=== PATIENT | male | born 1970 | race Caucasian/White ===

== ENCOUNTER 2024-12-23 01:01 | Observation (INO) | payer OTHER ==
[2024-12-23 02:18] LABS: #Basophils 0.07 10x3/uL (0.0-0.2); #Eosinophils 0.11 10x3/uL (0.0-0.7); #Monocytes 0.45 10x3/uL (0.11-0.59); #Neutrophils 4.04 10x3/uL (1.40-6.50); %Basophils 1.0 % (0.0-1.0); %Eosinophils 1.6 % (0.0-10.0); %Lymphocytes 29.8 % (21.0-51.0); %Monocytes 6.7 % (0.0-10.0); %Neutrophils 60.8 % (42.0-75.0); Hematocrit 49.0 % (42.0-52.0); Hemoglobin 15.9 g/dL (14.0-18.0); Mean Corpuscular Hemoglobin 27.7 pg (27.0-31.0); Mean Corpuscular Volume 85.4 fL (78.0-98.0); Platelet Count 300 10x3/uL (130-400); Red Blood Cell (RBC) Count 5.74 mill/uL (4.70-6.10); White Blood Cell (WBC) Count 6.67 10x3/uL (4.8-10.8)
[2024-12-23 02:35] LABS: ALT (SGPT) 21 U/L (Less than 45); AST (SGOT) 29 U/L (11-34); Albumin 4.2 g/dL (3.1-4.5); Alkaline Phosphatase 68 U/L (40-110); Anion Gap 13 mmol/L (10-20); BUN (Urea Nitrogen) 12 mg/dL (8.4-25.7); Bilirubin, Total 0.3 mg/dL (0.3-1.2); Calc. Creatinine Clearance 0 mL/min (70-130); Calcium 9.3 mg/dL (7.8-10.44); Carbon Dioxide 29 mmol/L (22-29); Chloride 101 mmol/L (98-107); Globulin 3.2 g/dL (2.4-3.5); Glucose 126 mg/dL (70-105); Lipase 52 U/L (8-78); Magnesium 2.1 mg/dL (1.6-2.6); Potassium 4.0 mmol/L (3.5-5.1); Sodium 139 mmol/L (136-145)
[2024-12-23] MEDS ORDERED: Ondansetron PF 4 MG/2 ML Vial ONE (04:02)
[2024-12-23] MEDS ORDERED: Dextrose 50% Abboject 50 ML SYRINGE SLOW IVP PRN (05:59)
[2024-12-23] MEDS ORDERED: Glucagon 1 MG/ML KIT IM PRN (05:59)
[2024-12-23] MEDS ORDERED: Ondansetron PF 4 MG/2 ML Vial IVP PRN (05:59)
[2024-12-23] MEDS ORDERED: hydrALAZINE 20 MG/ML VIAL SLOW IVP PRN (05:59)
[2024-12-23] MEDS ORDERED: HYDROmorphone 0.5 MG/0.5 ML SYRINGE SLOW IVP PRN (06:03)
[2024-12-23 06:54] VITALS: BMI 21.1
[2024-12-23] MEDS: Acetaminophen 325 MG TAB PO SCH (07:10)
[2024-12-23] MEDS: Ketorolac Tromethamine 30 MG (1 mL) VIAL IVP SCH (07:11)
[2024-12-23 08:41] LABS: Bacteria/HPF None Seen HPF (None Seen); CAUTI Indications for Culture Pelvic or flank pain; Glucose, Urine (Dipstick) Normal (Negative); Leukocyte Negative Leu/uL (Negative); Protein, Urine (Dipstick) Negative (Neg-Trace); RBC/HPF 0-3 HPF (0-3); WBC/HPF 0-3 HPF (0-3)
[2024-12-23 08:48] VITALS: BP 139/74; TEMP 97.9
[2024-12-23 08:48] LABS: Specific Gravity, Urine Greater than 1.050 (1.002-1.036); Urine Culture Reflex No No
[2024-12-23] MEDS: Famotidine 20 MG TAB PO SCH (08:49)
[2024-12-23] MEDS ORDERED: Famotidine/PF 20 mg/2ml Vial ONE (08:58)
[2024-12-23] MEDS ORDERED: Famotidine/PF 20 mg/2ml Vial SLOW IVP SCH (09:00)
[2024-12-23] MEDS ORDERED: fentaNYL PF 100 MCG/2 ML SYRINGE ONE ×2 (09:42→10:35)
[2024-12-23] MEDS ORDERED: PROPOFOL 20 ML ONE ×2 (09:42→10:38)
[2024-12-23] MEDS ORDERED: Bupivacaine 0.25% HCL 30 ML VIAL ONE (09:42)
[2024-12-23] MEDS ORDERED: Iopamidol-370 76% 500 ML MDV (1 ML CHARGE) ONE (09:43)
[2024-12-23] MEDS ORDERED: Rocuronium Bromide 10 MG/ML (10ML VIAL) ONE (10:18)
[2024-12-23] MEDS ORDERED: SUGAMMADEX SODIUM 200 MG/2 ML VIAL ONE (10:55)
== END 2024-12-23 14:05 | disposition home or self-care (01) ==
LOC: ERS 01:01 → ERHOLD 06:03
PROVIDERS: ADMIT Surgery; ATTEND Surgery
PROC: 0FT44ZZ Resection of Gallbladder, Percutaneous Endoscopic Approach (ICD-10-PCS; principal; 2024-12-23)
DX: K80.12 Calculus of gallbladder with acute and chronic cholecystitis without obstruction (principal); E03.9 Hypothyroidism, unspecified; F17.290 Nicotine dependence, other tobacco product, uncomplicated; Z91.040 Latex allergy status; Z91.013 Allergy to seafood; Z79.890 Hormone replacement therapy
CPT/HCPCS: 71045; 74177; 76705; 80053; 81001; 83690; 83735; 84484; 85025; 88304; 93005; 96365; 96375; C1889; G0378; J0169; J0665; J1100; J1308; J2250; J2270; J2405; J2543; J2704; J3010; J7120; Q9967